=== PATIENT | male | born 1965 | race African-American/Black ===

== ENCOUNTER 2020-05-06 10:33 | Inpatient (IN) | payer SELFPAY ==
[~2020-05-06] VITALS: Ht 195.6 cm; Wt 91.2 kg
[2020-05-06] MEDS ORDERED: SODIUM CHLORIDE 0.9% 1,000 ML IV ONE (11:15)
[2020-05-06 11:39] LABS: CHLORIDE 106 mEq/L (98-107)
[2020-05-06 11:40] LABS: D-DIMER 0.94 mg/L FEU (<0.50)
[2020-05-06 11:48] LABS: MEAN CORPUSCULAR HEMOGLOBIN 18.1 pg (28.0-32.0); MEAN PLATELET VOLUME 6.9 fl (7.4-10.4); PLATELET 570 x1000/uL (130-400); RED BLOOD CELL COUNT 2.02 mill/uL (4.7-6.1); RED CELL DISTRIBUTION WIDTH 19.3 % (11.6-14.6)
[2020-05-06 11:49] LABS: ETHANOL BLOOD < 10 mg/dL
[2020-05-06 11:51] LABS: HEMATOCRIT. 12.7 % (42.0-52.0); HEMOGLOBIN. 3.7 g/dL (14.0-18.0)
[2020-05-06] MEDS ORDERED: PANTOPRAZOLE 80 MG in SODIUM CHLORIDE 0.9% 100 ML IV SCH (12:15)
[2020-05-06] MEDS ORDERED: PANTOPRAZOLE SODIUM 40 MG/VIAL IV ONE (12:15)
[2020-05-06 12:44] LABS: NUCLEATED RED BLOOD CELLS 2 /100 WBC; PLATELET ESTIMATE INCREASED
[2020-05-06] MEDS ORDERED: POLYETHYLENE GLYCOL 3350 (17GM) 1 DOSE PACK PO NR (14:00)
[2020-05-06 14:45] LABS: CLARITY URINE CLEAR (CLEAR); COLOR URINE YELLOW (YELLOW); KETONES URINE NEGATIVE (NEGATIVE); LEUKOCYTE ESTERASE URINE 1+ (NEGATIVE); NITRITE URINE NEGATIVE (NEGATIVE); OCCULT BLOOD URINE NEGATIVE (NEGATIVE); PROTEIN URINE NEGATIVE (NEGATIVE); SPECIFIC GRAVITY URINE 1.018 (1.005-1.030); UROBILINOGEN URINE 0.2 E.U./dL (0.2-1.0)
[2020-05-06] MEDS ORDERED: IOHEXOL-350 100 ML BOTTLE ONE (14:57)
[2020-05-06] MEDS ORDERED: LORAZEPAM 2MG/ML CPJ IV PRN (15:30)
[2020-05-06] MEDS ORDERED: CLONIDINE 0.1MG TABLET PO PRN (15:30)
[2020-05-06] MEDS ORDERED: DIPHENHYDRAMINE 50MG/ML VIAL IV PRN (15:30)
[2020-05-06] MEDS ORDERED: DOCUSATE SODIUM 100MG CAPSULE PO PRN (15:30)
[2020-05-06] MEDS ORDERED: IPRATROPIUM/ALBUTEROL 0.5-3(2.5)MG/3ML NEB NEB PRN (15:30)
[2020-05-06] MEDS ORDERED: HYDROCODONE/ACETAMINOPHEN 10/325MG TABLET PO PRN (15:30)
[2020-05-06] MEDS ORDERED: MORPHINE SULFATE 2 MG/ML CPJ (NOT FOR IM USE) IV PRN (15:30)
[2020-05-06] MEDS ORDERED: ONDANSETRON HCL 4MG/2ML INJ IV PRN (15:30)
[2020-05-06] MEDS ORDERED: ACETAMINOPHEN 325MG TABLET PO PRN (15:30)
[2020-05-06] MEDS ORDERED: GUAIFENESIN 200MG/10ML SUGAR FREE UDC PO PRN (15:30)
[2020-05-06] MEDS ORDERED: HYDRALAZINE 20MG/ML VIAL IV PRN (15:30)
[2020-05-06] MEDS ORDERED: MAGNESIUM/ALUMINUM HYDROXIDE/SIMETHICONE 30ML UDC PO PRN (15:30)
[2020-05-06] MEDS: DEXT 5%/0.45% NACL 1000ML 1,000 ML IV SCH (16:02)
[2020-05-06] MEDS: DOCUSATE SODIUM 100MG CAPSULE PO SCH (16:03)
[2020-05-06] MEDS ORDERED: MVI, ADULT NO.1 10 ML, FOLIC ACID 1 MG, THIAMINE HCL 100 MG in SODIUM CHLORIDE 0.9% 1,0... IV NR ×4 (17:00)
[2020-05-06] MEDS: METOCLOPRAMIDE HCL 10MG/2ML VIAL IV SCH ×2 (20:23→23:59)
[2020-05-06 21:00] VITALS: BP 140/80
[2020-05-06 21:03] LABS: HEMOGLOBIN 4.9 g/dL (14.0-18.0)
[2020-05-06 21:04] LABS: HEMATOCRIT 16.2 % (42.0-52.0)
[2020-05-06] MEDS: SENNOSIDES/DOCUSATE SOD 8.6/50MG TABLET PO SCH (21:33)
[2020-05-06] MEDS: PANTOPRAZOLE SODIUM 40 MG/VIAL IV SCH (21:33)
[2020-05-07] VITALS (14 sets, daily range): BP systolic 115–141; BP diastolic 61–87
[2020-05-07] MEDS: METOCLOPRAMIDE HCL 10MG/2ML VIAL IV SCH ×3 (06:09→18:11)
[2020-05-07] MEDS: DEXT 5%/0.45% NACL 1000ML 1,000 ML IV SCH ×2 (06:09→18:12)
[2020-05-07] MEDS: SODIUM CHLORIDE 0.9% INJ 3ML FLUSH IVF SCH ×2 (06:10→14:00)
[2020-05-07 07:03] LABS: PROTHROMBIN TIME 10.9 sec (9.6-11.0)
[2020-05-07 07:10] LABS: CHLORIDE 109 mEq/L (98-107)
[2020-05-07 07:11] LABS: BASOPHILS % 0.4 % (0.0-2.0); EOSINOPHILS % 0.5 % (0.0-5.0); HEMATOCRIT. 22.7 % (42.0-52.0); HEMOGLOBIN. 7.3 g/dL (14.0-18.0); LYMPHOCYTES % 22.8 % (20.0-50.0); MEAN CORPUSCULAR HEMOGLOBIN 24.2 pg (28.0-32.0); MEAN CORPUSCULAR VOLUME 75.1 fL (80.0-94.0); MEAN PLATELET VOLUME 6.4 fl (7.4-10.4); MONOCYTES % 6.6 % (2.0-8.0); NEUTROPHILS % 69.7 % (40.0-76.0); PLATELET 406 x1000/uL (130-400); RED BLOOD CELL COUNT 3.03 mill/uL (4.7-6.1); RED CELL DISTRIBUTION WIDTH 25.2 % (11.6-14.6)
[2020-05-07 07:17] LABS: TOTAL IRON BINDING CAPACITY 360 ug/dL (250-450)
[2020-05-07 07:55] LABS: FOLIC ACID (FOLATE) SERUM >20 ng/mL ng/mL (>5.38)
[2020-05-07 08:07] LABS: VITAMIN B12 SERUM 252 pg/mL (211-911)
[2020-05-07 08:59] LABS: PLATELET ESTIMATE NORMAL
[2020-05-07] MEDS: PANTOPRAZOLE SODIUM 40 MG/VIAL IV SCH ×2 (09:00→20:23)
[2020-05-07] MEDS: DOCUSATE SODIUM 100MG CAPSULE PO SCH ×2 (09:00→17:00)
[2020-05-07 12:35] LABS: FERRITIN < 5 ng/mL (22-322)
[2020-05-07] MEDS ORDERED: PROPOFOL 200MG/20ML VIAL IV ONE ×2 (12:37→12:44)
[2020-05-07] MEDS ORDERED: ONDANSETRON HCL 4MG/2ML INJ IV PRN (13:00)
[2020-05-07] MEDS ORDERED: LABETALOL 5MG/ML SYR 20 MG/4 ML SYRINGE IV PRN (13:00)
[2020-05-07] MEDS: FERROUS SULFATE 325MG TABLET PO SCH ×2 (13:00→18:11)
[2020-05-07] MEDS ORDERED: HYDROMORPHONE HCL/PF 2MG/ML CPJ IV PRN (13:00)
[2020-05-07] MEDS ORDERED: MEPERIDINE HCL/PF 25MG/ML CPJ IV PRN (13:00)
[2020-05-07] MEDS: SUCRALFATE 1 G/10 ML UDC PO SCH ×2 (18:11→20:23)
[2020-05-07] MEDS: SENNOSIDES/DOCUSATE SOD 8.6/50MG TABLET PO SCH (20:23)
[2020-05-08] VITALS (11 sets, daily range): BP systolic 121–143; BP diastolic 62–78
[2020-05-08] MEDS: METOCLOPRAMIDE HCL 10MG/2ML VIAL IV SCH ×4 (01:58→17:50)
[2020-05-08] MEDS: SODIUM CHLORIDE 0.9% INJ 3ML FLUSH IVF SCH ×2 (01:58→14:00)
[2020-05-08] MEDS: DEXT 5%/0.45% NACL 1000ML 1,000 ML IV SCH (05:54)
[2020-05-08] MEDS: DOCUSATE SODIUM 100MG CAPSULE PO SCH ×2 (08:36→17:50)
[2020-05-08] MEDS: FERROUS SULFATE 325MG TABLET PO SCH ×3 (08:36→17:50)
[2020-05-08] MEDS: PANTOPRAZOLE SODIUM 40 MG/VIAL IV SCH (08:36)
[2020-05-08] MEDS: SUCRALFATE 1 G/10 ML UDC PO SCH ×3 (08:36→17:50)
[2020-05-08 10:34] LABS: HEMATOCRIT 21.6 % (42.0-52.0); HEMOGLOBIN 7.1 g/dL (14.0-18.0); MEAN CORPUSCULAR HEMOGLOBIN 24.9 pg (28.0-32.0); MEAN CORPUSCULAR VOLUME 75.2 fL (80.0-94.0); PLATELET 396 x1000/uL (130-400); RED BLOOD CELL COUNT 2.87 mill/uL (4.7-6.1); RED CELL DISTRIBUTION WIDTH 25.8 % (11.6-14.6)
[2020-05-08 19:35] LABS: HEMATOCRIT 28.1 % (42.0-52.0); HEMOGLOBIN 8.8 g/dL (14.0-18.0)
== END 2020-05-08 21:50 | disposition home or self-care (01) | DRG 241 ==
LOC: ER 10:33 → 6WST 14:43 → EDBEDREQ 14:49 → ENRESERV 19:03
PROVIDERS: ADMIT Internal Medicine; ATTEND Internal Medicine
PROC: 30233N1 Transfusion of Nonautologous Red Blood Cells into Peripheral Vein, Percutaneous Approach (ICD-10-PCS; 2020-05-06)
PROC: 0DB78ZX Excision of Stomach, Pylorus, Via Natural or Artificial Opening Endoscopic, Diagnostic (ICD-10-PCS; principal; 2020-05-07)
DX: K26.4 Chronic or unspecified duodenal ulcer with hemorrhage (principal); J45.909 Unspecified asthma, uncomplicated; D50.0 Iron deficiency anemia secondary to blood loss (chronic); D72.829 Elevated white blood cell count, unspecified; R65.10 Systemic inflammatory response syndrome (SIRS) of non-infectious origin without acute organ dysfunction; Z20.822 Contact with and (suspected) exposure to COVID-19; E88.09 Other disorders of plasma-protein metabolism, not elsewhere classified; J43.9 Emphysema, unspecified; K59.00 Constipation, unspecified; F10.10 Alcohol abuse, uncomplicated; Y90.9 Presence of alcohol in blood, level not specified; K29.90 Gastroduodenitis, unspecified, without bleeding; Z87.891 Personal history of nicotine dependence
CPT/HCPCS: 36415; 71045; 71275; 80048; 80053; 80320; 81003; 82607; 82728; 82746; 83540; 83550; 83605; 83880; 84484; 85014; 85018; 85025; 85027; 85044; 85379; 86677; 86850; 86900; 86920; 87426; 88305; 93005; 93970; 96365; 99291; C9113; J1200; J2405; J2704; J2765; J3411; J3490; J7030; J7040; J7050; P9016; Q9967; A4315; G0480